=== PATIENT | male | born 1975 | race African-American/Black ===

== ENCOUNTER 2017-05-15 01:00 | Emergency (ER) | payer BC, SELFPAY ==
[2017-05-15 01:37] LABS: #Basophils 0.1 thou/uL (0.0-0.2); #Eosinphils 0.3 thou/uL (0.0-0.7); #Lymphocytes 2.8 thou/uL (1.20-3.40); #Monocytes 0.4 thou/uL (0.11-0.59); #Neutrophils 4.2 thou/uL (1.40-6.50); %Basophils 0.9 % (0.0-1.0); %Eosinophils 4.3 % (0.0-10.0); %Lymphocytes 35.9 % (21.0-51.0); %Monocytes 4.7 % (0.0-10.0); %Neutrophils 54.3 % (42.0-75.0); Hemoglobin 15.6 g/dL (14.0-18.0); Mean Corpuscular HGB CONC 34.1 g/dL (32.0-36.0); Mean Corpuscular Hemoglobin 32.2 pg (27.0-31.0); Mean Corpuscular Volume 94.3 fl (80.0-94.0); Mean Platelet Volume 7.7 fL (7.4-10.4); Platelet Count 252 thou/uL (130-400); RBC Distribution Width 12.3 % (11.5-14.5); Red Blood Cell (RBC) Count 4.84 mill/uL (4.70-6.10); White Blood Cell (WBC) Count 7.8 thou/uL (4.8-10.8)
[2017-05-15 01:48] LABS: AST (SGOT) 32 U/L (5-34); Albumin 4.4 g/dL (3.5-5.0); Anion Gap 13 mmol/L (10-20); Bilirubin, Total 0.4 mg/dL (0.2-1.2); Calc. Creatinine Clearance 0 mL/min (70-130); Calcium 9.9 mg/dL (7.8-10.44); Carbon Dioxide 25 mmol/L (22-29); Chloride 107 mmol/L (98-107); Estimated GFR-MDRD 70; Globulin 3.3 g/dL (2.4-3.5); Glucose 157 mg/dL (70-105); Protein, Total 7.7 g/dL (6.0-8.3); Sodium 141 mmol/L (136-145)
[2017-05-15 01:52] LABS: ALT (SGPT) 71 U/L (8-55); Alkaline Phosphatase 71 U/L (40-150); BUN (Urea Nitrogen) 12 mg/dL (8.9-20.6)
[2017-05-15 03:28] LABS: CKMB 0.8 ng/mL (0-6.6); Troponin I Less than 0.010 ng/mL (< 0.028)
== END 2017-05-15 05:39 | disposition home or self-care (01) ==
LOC: ERS 01:00
DX: R42 Dizziness and giddiness (principal); E78.5 Hyperlipidemia, unspecified; I10 Essential (primary) hypertension; F17.210 Nicotine dependence, cigarettes, uncomplicated; Z71.6 Tobacco abuse counseling
CPT/HCPCS: 36415; 80053; 82553; 84484; 85025; 93005; 96360; 99406

== ENCOUNTER 2021-02-07 10:25 | Emergency (ER) | payer BC, SELFPAY | END 2021-02-07 11:05 | disposition home or self-care (01) | LOC: EEVIPCON 10:25 → ERS 10:25 | DX: L03.213 Periorbital cellulitis (principal); E78.5 Hyperlipidemia, unspecified; I10 Essential (primary) hypertension; F17.210 Nicotine dependence, cigarettes, uncomplicated | CPT/HCPCS: 99283 ==

== ENCOUNTER 2022-02-07 17:51 | Emergency (ER) | payer OTHER, SELFPAY | END 2022-02-07 20:00 | disposition home or self-care (01) | LOC: ERS 17:51 | DX: R60.0 Localized edema (principal); I10 Essential (primary) hypertension; E78.00 Pure hypercholesterolemia, unspecified; F17.210 Nicotine dependence, cigarettes, uncomplicated | CPT/HCPCS: 99283 ==

== ENCOUNTER 2022-03-05 06:24 | Emergency (ER) | payer SELFPAY ==
[2022-03-05 07:31] LABS: #Eosinphils 0.2 thou/uL (0.0-0.7); #Lymphocytes 2.5 thou/uL (1.20-3.40); #Monocytes 0.3 thou/uL (0.11-0.59); #Neutrophils 4.8 thou/uL (1.40-6.50); %Basophils 0.5 % (0.0-1.0); %Lymphocytes 32.2 % (21.0-51.0); %Monocytes 4.1 % (0.0-10.0); %Neutrophils 61.3 % (42.0-75.0); Hemoglobin 15.1 g/dL (14.0-18.0); Mean Corpuscular HGB CONC 32.9 g/dL (32.0-36.0); Mean Corpuscular Hemoglobin 30.7 pg (27.0-31.0); Mean Corpuscular Volume 93.5 fl (78.0-98.0); Platelet Count 227 thou/uL (130-400); RBC Distribution Width 12.5 % (11.5-14.5); White Blood Cell (WBC) Count 7.9 thou/uL (4.8-10.8)
[2022-03-05 07:51] LABS: ALT (SGPT) 50 U/L (8-55); AST (SGOT) 25 U/L (5-34); Albumin 4.5 g/dL (3.5-5.0); Alcohol 103 mg/dL (Less than 10); Alkaline Phosphatase 76 U/L (40-110); Anion Gap 15 mmol/L (10-20); BUN (Urea Nitrogen) 10 mg/dL (8.9-20.6); Bilirubin, Total 0.3 mg/dL (0.2-1.2); CK (CPK) 206 U/L (30-200); Calc. Creatinine Clearance 0 mL/min (70-130); Calcium 9.4 mg/dL (7.8-10.44); Carbon Dioxide 22 mmol/L (22-29); Chloride 110 mmol/L (98-107); Estimated GFR 71; Globulin 3.4 g/dL (2.4-3.5); Glucose 100 mg/dL (70-105); Potassium 3.8 mmol/L (3.5-5.1); Protein, Total 7.9 g/dL (6.0-8.3); Sodium 143 mmol/L (136-145)
== END 2022-03-05 09:15 | disposition short-term general hospital (02) ==
LOC: ERS 06:24
DX: R55 Syncope and collapse (principal); I10 Essential (primary) hypertension; E78.00 Pure hypercholesterolemia, unspecified; F17.210 Nicotine dependence, cigarettes, uncomplicated
CPT/HCPCS: 36415; 80053; 80307; 82550; 84146; 84484; 85025; 93005

== ENCOUNTER 2023-07-19 12:01 | Emergency (ER) | payer MEDICARE ==
[2023-07-19 14:34] LABS: #Basophils 0.1 thou/uL (0.0-0.2); #Eosinphils 0.2 thou/uL (0.0-0.7); #Monocytes 0.6 thou/uL (0.11-0.59); #Neutrophils 5.2 thou/uL (1.40-6.50); %Basophils 0.7 % (0.0-1.0); %Eosinophils 2.7 % (0.0-10.0); %Lymphocytes 25.9 % (21.0-51.0); %Neutrophils 63.3 % (42.0-75.0); Hematocrit 45.7 % (42.0-52.0); Hemoglobin 15.3 g/dL (14.0-18.0); Mean Corpuscular HGB CONC 33.5 g/dL (32.0-36.0); Mean Corpuscular Hemoglobin 30.8 pg (27.0-31.0); Mean Corpuscular Volume 92.1 fl (78.0-98.0); Mean Platelet Volume 10.8 fL (7.4-10.4); Platelet Count 245 10x3/uL (130-400); RBC Distribution Width 13.4 % (11.5-14.5); Red Blood Cell (RBC) Count 4.96 mill/uL (4.70-6.10); White Blood Cell (WBC) Count 8.2 10x3/uL (4.8-10.8)
[2023-07-19 14:40] LABS: ALT (SGPT) 43 U/L (8-55); AST (SGOT) 24 U/L (5-34); Albumin 4.5 g/dL (3.5-5.0); Alkaline Phosphatase 96 U/L (40-110); Anion Gap 13 mmol/L (10-20); BUN (Urea Nitrogen) 14 mg/dL (8.9-20.6); Bilirubin, Total 0.4 mg/dL (0.2-1.2); Calc. Creatinine Clearance 0 mL/min (70-130); Calcium 10.1 mg/dL (7.8-10.44); Carbon Dioxide 26 mmol/L (22-29); Chloride 109 mmol/L (98-107); Estimated GFR 69; Globulin 3.2 g/dL (2.4-3.5); Glucose 90 mg/dL (70-105); Potassium 3.9 mmol/L (3.5-5.1); Protein, Total 7.7 g/dL (6.0-8.3); Sodium 144 mmol/L (136-145)
[2023-07-19 15:35] LABS: Bacteria/HPF None Seen HPF (None Seen); Bilirubin Negative (Negative); Blood, Urine Negative (Negative); CAUTI Indications for Culture Pregnancy; Clarity Clear (Clear); Glucose, Urine (Dipstick) Normal (Negative); Ketone, Urine Negative (Negative); Leukocyte Negative Leu/uL (Negative); Nitrite Negative (Negative); Protein, Urine (Dipstick) Negative (Neg-Trace); RBC/HPF 0-3 HPF (0-3); Specific Gravity, Urine 1.024 (1.002-1.036); Squamous Epithelial None Seen HPF (0-3)
[2023-07-19 16:04] LABS: Urine Culture Reflex Yes Yes
== END 2023-07-19 15:22 | disposition home or self-care (01) ==
LOC: ERS 12:01
DX: R10.9 Unspecified abdominal pain (principal); F17.210 Nicotine dependence, cigarettes, uncomplicated; I10 Essential (primary) hypertension; Z55.6 Problems related to health literacy
CPT/HCPCS: 36415; 80053; 81001; 85025; 87086; 99283

== ENCOUNTER 2023-10-22 06:12 | Emergency (ER) | payer MEDICARE, OTHER | END 2023-10-22 06:32 | disposition home or self-care (01) | LOC: ERS 06:12 | DX: H10.9 Unspecified conjunctivitis (principal); J06.9 Acute upper respiratory infection, unspecified; Z55.6 Problems related to health literacy; I10 Essential (primary) hypertension; F17.210 Nicotine dependence, cigarettes, uncomplicated | CPT/HCPCS: 99283 ==

== ENCOUNTER 2024-05-03 17:22 | Observation (INO) | payer MEDICARE, OTHER ==
[~2024-05-03 17:22] MED LIST: Iopamidol-370 76% 500 ML MDV (1 ML CHARGE) ONE
[2024-05-03] MEDS ORDERED: Ketorolac Tromethamine 30 MG (1 mL) VIAL ONE (17:50)
[2024-05-03 18:45] LABS: ALT (SGPT) 72 U/L (8-55); AST (SGOT) 49 U/L (5-34); Albumin 3.8 g/dL (3.5-5.0); Alkaline Phosphatase 69 U/L (40-110); Anion Gap 12 mmol/L (10-20); BUN (Urea Nitrogen) 9 mg/dL (8.9-20.6); Bilirubin, Total 0.6 mg/dL (0.2-1.2); Calc. Creatinine Clearance 0 mL/min (70-130); Calcium 8.7 mg/dL (7.8-10.44); Carbon Dioxide 22 mmol/L (22-29); Chloride 107 mmol/L (98-107); Estimated GFR 77; Glucose 151 mg/dL (70-105); Potassium 3.4 mmol/L (3.5-5.1); Protein, Total 7.8 g/dL (6.0-8.3); Sodium 138 mmol/L (136-145)
[2024-05-03 19:04] LABS: Band 8 % (5-11); Lymphocytes 20 % (21-51); Macrocytosis SLIGHT = 6-15 cells HPF (0-5); Monocytes 3 % (0-10); Neutrophil 67 % (42-75); Platelet Adequacy Comment Platelets Normal; Reactive Lymphocytes 2 % (0-10)
[2024-05-03] MEDS ORDERED: Morphine 4 MG/ML VIAL ONE (19:10)
[2024-05-03 19:50] LABS: Prothrombin Time 12.7 sec (12.0-14.7)
[2024-05-03 19:51] LABS: PTT 35.1 sec (22.9-36.1)
[2024-05-03 20:11] VITALS: BMI 35.9
[2024-05-03] MEDS ORDERED: Morphine 2 MG/ML VIAL SLOW IVP PRN (20:39)
[2024-05-03] MEDS ORDERED: Ibuprofen 600 MG TAB PO PRN (20:39)
[2024-05-03] MEDS ORDERED: traMADol HCl 50 MG TAB PO PRN (20:39)
[2024-05-03] MEDS: Clindamycin/D5W 900 MG in Premix 1 BAG IVPB SCH (21:14)
[2024-05-03] MEDS: Piperacillin/Tazobactam 3.375 GM in Sodium Chloride 0.9% 100 ML IVPB SCH (21:46)
[2024-05-03 21:59] LABS: #Basophils 0.04 10x3/uL (0.0-0.2); %Basophils 0.4 % (0.0-1.0); %Eosinophils 0.5 % (0.0-10.0); %Lymphocytes 21.9 % (21.0-51.0); %Monocytes 7.8 % (0.0-10.0); %Neutrophils 69.2 % (42.0-75.0); Hematocrit 41.4 % (42.0-52.0); Hemoglobin 14.3 g/dL (14.0-18.0); Mean Corpuscular HGB CONC 34.5 g/dL (32.0-36.0); Mean Corpuscular Hemoglobin 30.1 pg (27.0-31.0); Mean Corpuscular Volume 87.2 fL (78.0-98.0); Mean Platelet Volume 12.6 fL (7.4-10.4); Platelet Count 168 10x3/uL (130-400); RBC Distribution Width 13.5 % (11.5-14.5); Red Blood Cell (RBC) Count 4.75 mill/uL (4.70-6.10)
[2024-05-03] MEDS: Acetaminophen 325 MG TAB PO SCH (23:50)
[2024-05-03] MEDS: traMADol HCl 50 MG TAB PO SCH (23:51)
[2024-05-04] MEDS: Piperacillin/Tazobactam 3.375 GM in Sodium Chloride 0.9% 100 ML IVPB SCH (01:13)
[2024-05-04 04:50] LABS: #Basophils 0.06 10x3/uL (0.0-0.2); %Basophils 0.6 % (0.0-1.0); %Eosinophils 1.3 % (0.0-10.0); %Monocytes 10.4 % (0.0-10.0); %Neutrophils 64.4 % (42.0-75.0); Hematocrit 39.9 % (42.0-52.0); Hemoglobin 13.6 g/dL (14.0-18.0); Mean Corpuscular HGB CONC 34.1 g/dL (32.0-36.0); Mean Corpuscular Hemoglobin 29.9 pg (27.0-31.0); Mean Corpuscular Volume 87.7 fL (78.0-98.0); Mean Platelet Volume 10.4 fL (7.4-10.4); Platelet Count 160 10x3/uL (130-400); RBC Distribution Width 13.7 % (11.5-14.5); Red Blood Cell (RBC) Count 4.55 mill/uL (4.70-6.10)
[2024-05-04 05:03] LABS: Anion Gap 11 mmol/L (10-20); BUN (Urea Nitrogen) 9 mg/dL (8.9-20.6); Calc. Creatinine Clearance 123 mL/min (70-130); Calcium 8.5 mg/dL (7.8-10.44); Carbon Dioxide 23 mmol/L (22-29); Chloride 109 mmol/L (98-107); Estimated GFR 82; Glucose 98 mg/dL (70-105); Potassium 3.6 mmol/L (3.5-5.1); Sodium 139 mmol/L (136-145)
[2024-05-04 08:23] VITALS: BP 145/79; TEMP 97
[2024-05-04] MEDS ORDERED: Piperacillin/Tazobactam 3.375 GM VIAL ONE (09:02)
[2024-05-04] MEDS ORDERED: Sodium Chloride 0.9% 100 ML ONE (09:02)
[2024-05-04] MEDS ORDERED: fentaNYL PF 100 MCG/2 ML SYRINGE ONE (09:18)
[2024-05-04] MEDS ORDERED: Midazolam HCl 2 mg/2 ml Vial ONE (09:18)
[2024-05-04] MEDS ORDERED: PROPOFOL 20 ML ONE (09:33)
[2024-05-04] MEDS ORDERED: Ondansetron PF 4 MG/2 ML Vial ONE (09:43)
[2024-05-04] MEDS ORDERED: Rocuronium Bromide 10 MG/ML (10ML VIAL) ONE (09:43)
[2024-05-04] MEDS ORDERED: Lidocaine 1% PF 5 ML VIAL ONE (09:43)
[2024-05-04] MEDS ORDERED: Dexamethasone 20 MG/5 ML VIAL ONE (09:43)
[2024-05-04] MEDS ORDERED: SUGAMMADEX SODIUM 200 MG/2 ML VIAL ONE (09:43)
[2024-05-04] MEDS ORDERED: Bupivacaine 0.25% HCL 30 ML VIAL ONE (09:48)
[2024-05-04] MEDS ORDERED: EPINEPHrine 1 MG/ML VIAL ONE (09:48)
[2024-05-04] MEDS ORDERED: fentaNYL 50 mcg/mL 1 mL Vial ONE ×2 (10:04→10:33)
[2024-05-04] MEDS: traMADol HCl 50 MG TAB PO PRN (11:28)
[2024-05-04] MEDS: Ibuprofen 600 MG TAB PO PRN (11:28)
[2024-05-04] MEDS ORDERED: Acetaminophen 500 MG TAB PO SCH (13:00)
[2024-05-04] MEDS ORDERED: Amoxicillin/Potassium Clav 500 MG TAB PO SCH (21:00)
== END 2024-05-04 16:53 | disposition home or self-care (01) ==
LOC: ERS 17:22 → INTOOBSV 19:21 → SURG B 19:21
PROVIDERS: ADMIT Specialist; ATTEND Specialist
PROC: 0J990ZZ Drainage of Buttock Subcutaneous Tissue and Fascia, Open Approach (ICD-10-PCS; principal; 2024-05-04)
DX: L02.31 Cutaneous abscess of buttock (principal); I10 Essential (primary) hypertension; E78.5 Hyperlipidemia, unspecified
CPT/HCPCS: 36415; 71045; 72193; 80048; 80053; 85025; 85610; 85730; 93005; 96365; 96375; J0171; J0665; J1100; J1885; J2250; J2272; J2405; J2543; J2704; J3010; J3490; Q9967

== ENCOUNTER 2025-04-29 11:32 | Emergency (ER) | payer SELFPAY | END 2025-04-29 13:26 | disposition home or self-care (01) | LOC: ERS 11:32 | DX: S39.012A Strain of muscle, fascia and tendon of lower back, initial encounter (principal); S16.1XXA Strain of muscle, fascia and tendon at neck level, initial encounter; I10 Essential (primary) hypertension; F17.210 Nicotine dependence, cigarettes, uncomplicated; V49.49XA Driver injured in collision with other motor vehicles in traffic accident, initial encounter; Y93.89 Activity, other specified | CPT/HCPCS: 72100; 72125 ==